=== PATIENT | male | born 1970 | race Caucasian/White ===

== ENCOUNTER → 2019-06-01 | Outpatient (REF) | payer BC ==
[2019-06-01 13:21] LABS: BASO % 0.3 % (0.0-1.0); EOS # 0.1 10^3/uL (0.0-0.5); EOS % 0.8 % (0.0-3.0); HEMOGLOBIN 14.5 g/dl (13.5-17.5); LYMPH # 1.9 10^3/uL (1.5-5.0); LYMPH % 29.6 % (24.0-44.0); MEAN CORPUSCULAR HEMOGLOBIN 30.4 pg (27.0-33.0); MEAN CORPUSCULAR HGB CONC 33.7 g/dl (32.0-36.5); MEAN CORPUSCULAR VOLUME 90.1 fl (80.0-96.0); MONO # 0.7 10^3/uL (0.0-0.8); MONO % 10.2 % (0.0-5.0); NEUTROPHILS # 3.8 10^3/uL (1.5-8.5); NEUTROPHILS % 58.6 % (36.0-66.0); PLATELET COUNT, AUTOMATED 194 10^3/uL (150-450); RED BLOOD COUNT 4.77 10^6/uL (4.30-6.10); WHITE BLOOD COUNT 6.5 10^3/uL (4.0-10.0)
[2019-06-01 13:40] LABS: ALBUMIN 4.4 GM/DL (3.2-5.2); ALT/SGPT 32 U/L (12-78); AMYLASE 124 U/L (25-115); BILIRUBIN,TOTAL 0.5 MG/DL (0.2-1.0); BLOOD UREA NITROGEN 17 MG/DL (7-18); CALCIUM LEVEL 9.3 MG/DL (8.5-10.1); CARBON DIOXIDE LEVEL 28 MEQ/L (21-32); CHLORIDE LEVEL 107 MEQ/L (98-107); CREATININE FOR GFR 0.84 MG/DL (0.70-1.30); GLOMERULAR FILTRATION RATE > 60.0 (>60); GLUCOSE, FASTING 84 MG/DL (70-100); LIPASE 133 U/L (73-393); POTASSIUM SERUM 5.3 MEQ/L (3.5-5.1); SODIUM LEVEL 139 MEQ/L (136-145); TOTAL PROTEIN 7.8 GM/DL (6.4-8.2)
== END ==
LOC: M LABDRWAD 12:47
PROVIDERS: ATTEND Nurse Practitioner Family
DX: R10.11 Right upper quadrant pain (principal)

== ENCOUNTER → 2019-06-01 | Outpatient (CLI) | payer BC ==
--- NOTE | 2019-06-01 15:29 | REP ---
Clinical: Right upper quadrant pain. Technique: Real time waller scale ultrasound examination using curved array transducer. Findings: Liver and visualized pancreas are normal in contour, size, and echogenicity without focal hepatic or pancreatic lesion identified. The gallbladder is normal and without gallstones, wall thickening, or pericholecystic fluid. No biliary ductal dilatation is appreciated and the common bile duct measures 2.7 mm diameter. The right kidney is normal in reniform shape without hydronephrosis and measures 10.1 x 4.4 x 3.8 cm. No ascites in the visualized right upper quadrant. Impression: Normal right upper quadrant ultrasound. Electronically Signed by Emanuel Marrero MD 06/01/2019 03:21 P
== END ==
LOC: M RAD 14:52
PROVIDERS: ATTEND Nurse Practitioner Family
DX: R10.11 Right upper quadrant pain (principal)

== ENCOUNTER 2020-03-29 13:41 | Emergency (ER) | payer OTHER, BC ==
[~2020-03-29] VITALS: Ht 167.6 cm; Wt 61.4 kg
[2020-03-29] MEDS ORDERED: BOOSTRIX/ADACEL VACCINE (DIPHTH/PERTUSS/ACELL/TETANUS) 0.5ML SYR IM ONE (14:45)
--- NOTE | 2020-03-29 15:35 | REP ---
INDICATION: head injury , post left scalp, metal fell 4 ft. COMPARISON: None. TECHNIQUE: Helical scanning is acquired. 5 mm axial images were reformatted. Coronal MPR images were generated. FINDINGS: Bone window settings demonstrate an intact bony calvarium. There is no evidence of skull fracture or incidental bony calvarial lesion. The visualized paranasal sinuses appear clear. No intraorbital abnormality is seen. On soft tissue window setting images; the lateral, third, and fourth ventricles are normal in size and position. Rebollar-white differentiation pattern is normal above and below the tentorium. There are is no evidence of intracranial hemorrhage. No mass, edema, infarction, or midline shift is seen. No extra-axial fluid collection is appreciated. Skin ben are seen in the scalp soft tissues on the right occipital region and at the right vertex. Some scalp swelling is seen in these locations. No skull fracture. IMPRESSION: Scalp swelling and skin ben. No skull fracture or intracranial injury. Otherwise negative head CT.. <Electronically signed by Castillo Nicholson > 03/29/20 [id number]
[2020-03-29 15:44] VITALS: BP 139/86
== END 2020-03-29 15:47 | disposition home or self-care (01) ==
LOC: M ED 13:41
DX: S01.01XA Laceration without foreign body of scalp, initial encounter (principal); W20.8XXA Other cause of strike by thrown, projected or falling object, initial encounter; Y92.9 Unspecified place or not applicable; Y93.9 Activity, unspecified; Y99.0 Civilian activity done for income or pay

== ENCOUNTER 2020-04-05 16:47 | Emergency (ER) | payer OTHER, BC ==
[~2020-04-05] VITALS: Ht 167.6 cm; Wt 62.9 kg
[2020-04-05 16:47] VITALS: BP 126/78
[2020-04-05] MEDS ORDERED: MORPHINE 10 MG/ML 1ML VIAL (J2270) IM ONE (17:15)
== END 2020-04-05 17:29 | disposition home or self-care (01) ==
LOC: M ED 16:47
DX: Z48.89 Encounter for other specified surgical aftercare (principal)

== ENCOUNTER 2020-04-09 16:45 | Emergency (ER) | payer OTHER, BC ==
[~2020-04-09] VITALS: Ht 167.6 cm; Wt 61.4 kg
[2020-04-09 18:55] VITALS: BP 140/80
== END 2020-04-09 18:57 | disposition home or self-care (01) ==
LOC: M ED 16:45
DX: Z48.02 Encounter for removal of sutures (principal)

== ENCOUNTER 2020-05-04 08:50 | Emergency (ER) | payer OTHER, BC ==
[~2020-05-04] VITALS: Ht 170.2 cm; Wt 61.4 kg
--- OUTSIDE RECORDS SUMMARY | 2020-05-04 08:56 | CCD ---
Author Author [facility] Organization [facility] Address Unknown Phone Unavailable Care Team Providers Care Partition Assembly Machine Operator Name Role Phone Vargas, Arpita PHYSICAL DIRECTOR Unavailable Unavailable Vargas, Arpita PHYSICAL DIRECTOR Unavailable Unavailable Vargas, Arpita PHYSICAL DIRECTOR Unavailable Unavailable Vargas, Arpita PHYSICAL DIRECTOR Unavailable Unavailable Vargas, Arpita PHYSICAL DIRECTOR Unavailable Unavailable Vargas, Arpita PHYSICAL DIRECTOR Unavailable Unavailable Vargas, Arpita PHYSICAL DIRECTOR Unavailable Unavailable Vargas, Arpita PHYSICAL DIRECTOR Unavailable Unavailable Vargas, Arpita PHYSICAL DIRECTOR Unavailable Unavailable Vargas, Arpita PHYSICAL DIRECTOR Unavailable Unavailable Vargas, Arpita PHYSICAL DIRECTOR Unavailable Unavailable Re-disclosure Warning The records that you are about to access may contain information from federally-assisted alcohol or drug abuse programs. If such information is present, then the following federally mandated warning applies: This information has been disclosed to you from records protected by federal confidentiality rules (42 CFR part 2). The federal rules prohibit you from making any further disclosure of this information unless further disclosure is expressly permitted by the written consent of the person to whom it pertains or as otherwise permitted by 42 CFR part 2. A general authorization for the release of medical or other information is NOT sufficient for this purpose. The Federal rules restrict any use of the information to criminally investigate or prosecute any alcohol or drug abuse patient.The records that you are about to access may contain highly sensitive health information, the redisclosure of which is protected by Article 27-F of the [facility] Public Health law. If you continue you may have access to information: Regarding HIV / AIDS; Provided by facilities licensed or operated by the [facility] Office of Mental Health; or Provided by the [facility] Office for People With Developmental Disabilities. If such information is present, then the following [facility] mandated warning applies: This information has been disclosed to you from confidential records which are protected by state law. State law prohibits you from making any further disclosure of this information without the specific written consent of the person to whom it pertains, or as otherwise permitted by law. Any unauthorized further disclosure in violation of state law may result in a fine or senior care sentence or both. A general authorization for the release of medical or other information is NOT sufficient authorization for further disc losure. Family History Family Member Name Family Member Gender Family Member Status Date o f Status Description Data Source(s) Unknown Unknown Problem [facility] ([facility]) Unknown Unknown Problem [facility] ([facility]) Encounters Encounter Providers Location Date Indications Data Source(s ) Outpatient 06/09/2019 12:08:00 PM EST [facility] Outpatient 06/09/2019 12:05:00 PM EST [facility]iology Imaging Outpatient Attender: Arpita angulo 06/01/2019 09:30:00 AM EST [facility] ([facility]) Insurance Providers Payer name Policy type / Coverage type Policy ID Covered constitution party ID Covered constitution party's relationship to lewis Policy Lewis Plan Information TAMMY GOMEZ WORKER COMP [id number] SP [id number] [place] 306/806 [id number] SP [id number] OMAHA CHEESE [id number] SP [id number] [place] PPO 302/307 [id number] SP [id number] EXCELLUS BCBS B [id number] S [id number] [place] 306/806 [id number] SP [id number] HEALTH WELFARE BENEFIT SYS [id number] SP [id number] BCBS/Excellus Commercial [id number] Self GL [id number] BCBS/[employer]cell[employer] Commercial [id number] Self GL [id number] BCBS/Excell[employer] Commercial Self Results ID Date Data Source [id number] 06/01/2019 11:30:00 AM EST [facility] ([facility]) Name Value Range Interpretation Code Description Data Wendi rce(s) Supporting Document(s) Lipoprotein lipase [Enzymatic activity/volume] in Serum or P lasma 133 U/L 73-393 MED[facility] ([facility]) ID Date Data Source [id number] 06/01/2019 11:30:00 AM EST MED[facility] ([facility]) Name Value Range Interpretation Code Description Data Wendi rce(s) Supporting Document(s) Glucose, Fasting 84 mg/dL 70-100 [facility] ([facility], [facility]) Blood Urea Nitrogen 17 mg/dL 7-18 MED[facility] ([facility], [facility]) Creatinine For GFR 0.84 mg/dL 0.70-1.30 MED[facility] ([facility], [facility]) Glomerular Filtration Rate > 60.0 MED ENT ([facility]) <content>Units are mL/min/1.73 m2</content>
<content></content>
<content>Chronic Kidney Disease Staging per NKF:</content>
<content></content>
<content>Stage I & II GFR >=60 Normal to Mildly Decreased</content>
<content>Stage III GFR 30-59 Moderately Decreased</content>
<content>Stage IV GFR 15-29 Severely Decreased</content>
<content>Stage V GFR <15 Very Little GFR Left</content>
<content>ESRD GFR <15 on AS400 PROGRAMMER</content>
<content></content> Sodium Level 139 meq/L 136-145 MED[facility] ([facility], [facility]) Potassium Serum 5.3 meq/L 3.5-5.1 MED[facility] ([facility], [facility]) Chloride Level 107 meq/L 98-107 MED[facility] ([facility]) Anion Gap 4 meq/L 8-16 [facility] ([facility]) Carbon Dioxide Level 28 meq/L 21-32 [facility] Calcium Level 9.3 mg/dL 8.5-10.1 MED[facility] ([facility], [facility]) Ast/Sgot 18 U/L 7-37 [facility] ([facility]) Alt/SGPT 32 U/L 12-78 [facility] ([facility]) Alkaline Phosphatase 98 U/L 45-117 [facility] ([facility], [facility]) Bilirubin,Total 0.5 mg/dL 0.2-1.0 [facility] ([facility] Total Protein 7.8 GM/DL 6.4-8.2 [facility] ([facility]) Albumin 4.4 GM/DL 3.2-5.2 [facility] ([facility] Albumin/Globulin Ratio 1.29 1.00-1.93 [facility] ([facility], [facility]) ID Date Data Source [id number] 06/01/2019 11:30:00 AM EST MED[facility] ([facility], [facility]) Name Value Range Interpretation Code Description Data Wendi rce(s) Supporting Document(s) White Blood Count 6.5 10 4.0-10.0 [facility] ([facility]) Red Blood Count 4.77 10 4.30-6.10 [facility] ([facility]) Hemoglobin 14.5 g/dL 13.5-17.5 [facility] ([facility] Hematocrit 43.0 % 42.0-52.0 [facility] ([facility], [facility]) Mean Corpuscular Volume 90.1 fl 80.0-96.0 M EDENT ([facility]) Mean Corpuscular Hemoglobin 30.4 pg 27.0-33.0 [facility] ([facility] Mean Corpuscular HGB Conc 33.7 g/dL 32.0-36.5 [facility] ([facility], [facility]) Red Cell Distribution Width 12.7 % 11.5-14.5 [facility] ([facility], [facility]) Platelet Count, Automated 194 10 150-450 [facility] ([facility] Neutrophils % 58.6 % 36.0-66.0 MED[facility] ([facility], [facility]) Lymph % 29.6 % 24.0-44.0 MED[facility] ([facility], [facility]) [place] % 10.2 % 0.0-5.0 MED[facility] ([facility], [facility]) Eos % 0.8 % 0.0-3.0 MED[facility] ([facility], [facility]) Baso % 0.3 % 0.0-1.0 [facility] ([facility], [facility]) Immature Granulocyte % 0.5 % 0-3.0 MED[facility] ([facility], [facility]) Neutrophils # 3.8 10 1.5-8.5 MED[facility] ([facility], [facility]) Nucleated Red Blood Cell % 0.0 % 0-0 MED ENT ([facility], [facility]) Lymph # 1.9 10 1.5-5.0 MED[facility] ([facility], [facility]) Eos # 0.1 10 0.0-0.5 MED[facility] ([facility], [facility]) [place] # 0.7 10 0.0-0.8 MED[facility] ([facility], [facility]) Baso # 0.0 10 0.0-0.2 [facility] ([facility], [facility]) ID Date Data Source [id number] 06/01/2019 11:30:00 AM EST MED[facility] ([facility], [facility]) Name Value Range Interpretation Code Description Data Wendi rce(s) Supporting Document(s) Amylase [Enzymatic activity/volume] in Serum or Plasma 124 U/L 25- 115 MED[facility] ([facility], [facility]) Procedure Vital Signs ID Date Data Source UNK Name Value Range Interpretation Code Description Data Source(s) Body mass index (BMI) [Ratio] 22.1 kg/m2 22.1 k g/m2 MED[facility] ([facility], [facility]) Body height 66 [in_i] 66 [in_i] MED[facility] ([facility]) 5'6" Body weight 137.00 [lb_av] 137.00 [lb_av] MEDEN T ([facility]) Body temperature 97.6 [degF] 97.6 [degF] [facility] ([facility], [facility]) Oxygen saturation in Arterial blood by Pulse oximetry 98 % 98 % [facility] ([facility], [facility]) Respiratory rate 82 /min 82 /min [facility] ( [facility], [facility]) Heart rate 90 /min 90 /min [facility] ([facility], [facility]) Diastolic blood pressure 82 mm[Hg] 82 mm[Hg] [facility] ([facility], [facility]) Systolic blood pressure 115 mm[Hg] 115 mm[Hg] [facility] ([facility], [facility])
--- NOTE | 2020-05-04 09:17 | REP ---
INDICATION: trauma COMPARISON: None. TECHNIQUE: AP, lateral, bilateral oblique views. FINDINGS: There is a nondisplaced oblique fracture of the distal fibular metaphysis with overlying soft tissue swelling. Remainder of the examination is relatively normal. IMPRESSION: Nondisplaced oblique fracture of the distal fibular metaphysis. <Electronically signed by Emanuel Marrero > 05/04/20 0913
--- OUTSIDE RECORDS SUMMARY | 2020-05-04 09:26 | CCD ---
Author Author [facility] Organization [facility] Address Unknown Phone Unavailable Care Team Providers Care General Maintenance Technician Name Role Phone Vargas, Arpita TEMPLATE STORAGE CLERK Unavailable Unavailable Vargas, Arpita TEMPLATE STORAGE CLERK Unavailable Unavailable Vargas, Arpita TEMPLATE STORAGE CLERK Unavailable Unavailable Vargas, Arpita TEMPLATE STORAGE CLERK Unavailable Unavailable Vargas, Arpita TEMPLATE STORAGE CLERK Unavailable Unavailable Vargas, Arpita TEMPLATE STORAGE CLERK Unavailable Unavailable Vargas, Arpita TEMPLATE STORAGE CLERK Unavailable Unavailable Vargsa, Arpita TEMPLATE STORAGE CLERK Unavailable Unavailable Vargas, Arpita TEMPLATE STORAGE CLERK Unavailable Unavailable Vargas, Arpita TEMPLATE STORAGE CLERK Unavailable Unavailable Vargas, Arpita TEMPLATE STORAGE CLERK Unavailable Unavailable Re-disclosure Warning The records that [...] is protected by Article 27-F of the [place] State Public Health law. If you continue you may have access to information: Regarding HIV / AIDS; Provided by facilities licensed or operated by the [facility] Office of Mental Health; or Provided by the [facility] Office for People With Developmental Disabilities. If such information is present, then the following [facility] mandated warning applies: This information has been [...] law may result in a fine or nursing home sentence or both. A general authorization for [...] Source(s ) Outpatient 06/09/2019 12:08:00 PM EST [facility] Radiology Imaging Outpatient 06/09/2019 12:05:00 PM EST [facility] Radiology Imaging Outpatient Attender: Arpita angulo 06/01/2019 09:30:00 AM EST [facility] ([facility]) Insurance Providers Payer name Policy type / Coverage type Policy ID Covered alliance party ID Covered alliance party's relationship to lewis Policy Lewis Plan Information MUNOZLEANDRO GOMEZ WORKER COMP [id number] SP [id number] [place] 306/806 [id number] SP [id number] TAMMY GOMEZ WORKER COMP [id number] SP [id number] [facility] [id number] SP [id number] [place] PPO 302/307 [id number] SP [id number] EXCELLUS BCBS B [id number] S [id number] [place] 306/806 [id number] SP [id number] HEALTH WELFARE BENEFIT SYS [id number] SP [id number] BCBS/Excell[employer] Commercial [id number] Self GL [id number] BCBS/[employer]cell[employer] Commercial [id number] Self GL [id number] BCBS/[employer]cell[employer] Commercial Self Results ID Date Data Source [id number] 06/01/2019 11:30:00 AM EST [facility] ([facility], [facility]) Name Value Range Interpretation Code Description Data Wendi rce(s) Supporting Document(s) Lipoprotein lipase [Enzymatic activity/volume] in Serum or P lasma 133 U/L 73-393 [facility] ([facility]) ID Date Data Source [id number] 06/01/2019 11:30:00 AM EST [facility] ([facility], [facility]) Name Value Range Interpretation Code Description Data Wendi rce(s) Supporting Document(s) Glucose, Fasting 84 mg/dL 70-100 [facility] ([facility], [facility]) Blood Urea Nitrogen 17 mg/dL 7-18 [facility] ([facility], [facility]) Creatinine For GFR 0.84 mg/dL 0.70-1.30 [facility] ([facility], [facility]) Glomerular Filtration Rate > 60.0 MED ENT ([facility], [facility]) <content>Units are mL/min/1.73 m2</content>
<content></content>
<content>Chronic Kidney Disease Staging per NKF:</content>
<content></content>
<content>Stage I & II GFR >=60 Normal to Mildly Decreased</content>
<content>Stage III GFR 30-59 Moderately Decreased</content>
<content>Stage IV GFR 15-29 Severely Decreased</content>
<content>Stage V GFR <15 Very Little GFR Left</content>
<content>ESRD GFR <15 on MEASUREMENT OPERATOR</content>
<content></content> Sodium Level 139 meq/L 136-145 [facility] ([facility], [facility]) Potassium Serum 5.3 meq/L 3.5-5.1 [facility] ([facility], [facility]) Chloride Level 107 meq/L 98-107 [facility] ([facility], [facility]) Anion Gap 4 meq/L 8-16 [facility] ([facility] [place], [facility]) Carbon Dioxide Level 28 meq/L 21-32 [facility] ( [facility], [facility]) Calcium Level 9.3 mg/dL 8.5-10.1 [facility] ([facility], [facility]) Ast/Sgot 18 U/L 7-37 [facility] ([facility], [facility]) Alt/SGPT 32 U/L 12-78 [facility] ([facility], [facility]) Alkaline Phosphatase 98 U/L 45-117 [facility] ( [facility], [facility]) Bilirubin,Total 0.5 mg/dL 0.2-1.0 [facility] ([facility], [facility]) Total Protein 7.8 GM/DL 6.4-8.2 [facility] ([facility], [facility]) Albumin 4.4 GM/DL 3.2-5.2 [facility] ([facility], [facility]) Albumin/Globulin Ratio 1.29 1.00-1.93 [facility] ([facility] [place], [facility]) ID Date Data Source [id number] 06/01/2019 11:30:00 AM EST MED[facility] ([facility] [place], [facility]) Name Value Range Interpretation Code Description Data Wendi rce(s) Supporting Document(s) White Blood Count 6.5 10 4.0-10.0 MED[facility] ([facility], [facility]) Red Blood Count 4.77 10 4.30-6.10 [facility] ([facility] [place], [facility]) Hemoglobin 14.5 g/dL 13.5-17.5 [facility]) Hematocrit 43.0 % 42.0-52.0 [facility]) Mean Corpuscular Volume 90.1 fl 80.0-96.0 M EDENT ([facility], [facility]) Mean Corpuscular Hemoglobin 30.4 pg 27.0-33.0 [facility] ([facility] [place], [facility]) Mean Corpuscular HGB Conc 33.7 g/dL 32.0-36.5 [facility] ([facility] [place], [facility]) Red Cell Distribution Width 12.7 % 11.5-14.5 [facility] ([facility] [place], [facility]) Platelet Count, Automated 194 10 150-450 [facility] ([facility], [facility]) Neutrophils % 58.6 % 36.0-66.0 [facility] ([facility] [place], [facility]) Lymph % 29.6 % 24.0-44.0 [facility] ([facility] [place], [facility]) [place] % 10.2 % 0.0-5.0 [facility] ([facility] [place], [facility]) Eos % 0.8 % 0.0-3.0 [facility] ([facility] [place], [facility]) Baso % 0.3 % 0.0-1.0 [facility] ([facility] [place], [facility]) Immature Granulocyte % 0.5 % 0-3.0 [facility] ([facility], [facility]) Neutrophils # 3.8 10 1.5-8.5 [facility] ([facility], [facility]) Nucleated Red Blood Cell % 0.0 % 0-0 MED E[facility] ([facility], [facility]) Lymph # 1.9 10 1.5-5.0 [facility] ([facility], [facility]) Eos # 0.1 10 0.0-0.5 [facility] ([facility] [place], [facility]) [place] # 0.7 10 0.0-0.8 [facility] ([facility], [facility]) Baso # 0.0 10 0.0-0.2 [facility] ([facility], [facility]) ID Date Data Source [id number] 06/01/2019 11:30:00 AM EST [facility] ([facility], [facility]) Name Value Range Interpretation Code Description Data Wendi rce(s) Supporting Document(s) Amylase [Enzymatic activity/volume] in Serum or Plasma 124 U/L 25- 115 [facility] ([facility], [facility]) Procedure Vital Signs ID Date Data Source UNK Name Value Range Interpretation Code Description Data Source(s) Body mass index (BMI) [Ratio] 22.1 kg/m2 22.1 k g/m2 [facility] ([facility], [facility]) Body height 66 [in_i] 66 [in_i] MED[facility] ([facility], [facility]) 5'6" Body weight 137.00 [lb_av] 137.00 [lb_av] MEDEN T ([facility], [facility]) Body temperature 97.6 [degF] 97.6 [degF] [facility] ([facility], [facility]) Oxygen saturation in Arterial blood by Pulse oximetry 98 % 98 % [facility] ([facility], [facility]) Respiratory rate 82 /min 82 /min [facility] ( [facility], [facility]) Heart rate 90 /min 90 /min [facility] ([facility] [place], [facility]) Diastolic blood pressure 82 mm[Hg] 82 mm[Hg] [facility] ([facility], [facility]) Systolic blood pressure 115 mm[Hg] 115 mm[Hg] [facility] ([facility], [facility])
[2020-05-04 09:59] VITALS: BP 121/71
== END 2020-05-04 10:45 | disposition home or self-care (01) ==
LOC: M ED 08:50
DX: S82.65XA Nondisplaced fracture of lateral malleolus of left fibula, initial encounter for closed fracture (principal); W00.0XXA Fall on same level due to ice and snow, initial encounter; Y92.9 Unspecified place or not applicable; Y93.9 Activity, unspecified; Y99.0 Civilian activity done for income or pay